=== PATIENT | male | born 2000 | race Caucasian/White ===

== ENCOUNTER → 2023-10-03 10:27 | Outpatient (BNVA) | payer BC, SELFPAY | PROVIDERS: Family Provider Family Medicine; PCP Family Medicine; Visit Provider Registered Nurse Neonatal Intensive Care | DX: J02.9 Acute pharyngitis, unspecified (principal) | CPT/HCPCS: 87880 ==

== ENCOUNTER 2023-10-06 19:42 | Emergency (ER) | payer BC, SELFPAY ==
[2023-10-06 19:43] VITALS: BP 127/88; PULSE 81; RESP 16; TEMP 36.6; O2SAT 98
--- NOTE | 2023-10-06 19:54 | ED_ITS ---
HPI - General Adult General: Stated complaint: throat swelling, body aches Time Seen by Provider: 10/06/23 19:51 Source: patient Mode of arrival: ambulatory Limitations: no limitations History of Present Illness: Patient is a 23-year-old male presents to ED today with complaint of a sore throat and dysphagia. Patient states he has had symptoms for approximately 5 days now. He was seen at urgent care 3 days ago and tested positive for strep. He was placed on amoxicillin. Patient states he has been on this medication for 3 days and does not feel like he is improving as expected. He states he is h aving razor like discomforts when he eats or drinks. Patient is not having any drooling, trouble swallowing or controlling secretions. He does not complain of shortness of breath or difficulty breathing. Onset (ago): day(s) Severity: moderate Pain Consistency: constant Exacerbating factors: other (swallowing) Associated symptoms: Reports no associated symptoms; Deny chest pain, dyspnea, headache(s), malaise or rash Treatments prior to arrival: none Review of Systems Const: Reports: fever(s) and body aches; Denies: fatigue or malaise Eyes: Denies: eye discomfort, eye discharge or eye redness ENMT: Reports: throat pain and odynophagia; Denies: nasal discharge, nasal congestion or sinus pain Card: Denies: chest pain Resp: Denies: dyspnea GI: Denies: abdominal pain Skin/Breast: Denies: rash Neuro: Denies: headache(s) PFS ED PFSH: Social History Smoking and tobacco/nicotine status: never used tobacco/nicotine Physical Exam Const: COMMON NORMALS: no acute distress, average body habitus, patient oriented x3, no limitations, alert and well nourished HENMT: FACE & SINUS: normal facial exam MOUTH: Normal oral and palatal mucosa present and lip normal THROAT: abnormal tonsil (there is no tonsillar abscess or [employer] CHIEF present) bilateral erythema, exudates and hypertrophy Eye: GENERAL EYE: appearance normal, both eyes and all related structures Neck/C-Spine: COMMON NORMALS: no lymphadenopathy GENERAL: Yes normal visual inspection, No anterior neck swelling and No submandibular swelling Resp: COMMON NORMALS: normal respiratory effort and clear to auscultation bilaterally AUSCULTATION: clear to auscultation bilaterally Cardio: COMMON NORMALS: regular rate and regular rhythm RATE: regular rate RHYTHM: regular rhythm Neuro: COMMON NORMALS: patient oriented x3 SENSORIUM/ORIENTATION: Yes alert Skin: COMMON NORMALS: no rashes or lesions noted GENERAL SKIN EXAM: no rashes or lesions noted Course Vital Signs: Vital signs: Vital Signs Temperature 97.9 F 10/06/23 19:43 Pulse Rate 81 10/06/23 19:43 Respiratory Rate 16 10/06/23 19:43 Blood Pressure 127/88 10/06/23 19:43 Pulse Oximetry 98 10/06/23 19:43 Oxygen Delivery Me thod Room Air 10/06/23 19:43 MDM - General Adult Medical Decision Making Patient was given IM Bicillin as well as 10mg of Decadron. Patient gargled with viscous lidocaine but does not feel like this provided much relief and does not want a prescription for this. Recommend continue OTC analgesics. I would anticipate him improving over the next 24 to 48 hours. Return ED precautions given. Do not have any suspicion for a tonsillar or peritonsillar abscess at this time. Medical Records I reviewed the patient's medical records. Lab Data I reviewed the patient's lab results. No radiology studies performed this visit Discharge Plan Discharge Patient Disposition: Home Clinical Impression: Acute streptococcal tonsillitis Qualifiers: Streptococcal tonsillitis recurrence: non-recurrent Qualified Code(s): J03.00 - Acute streptococcal tonsillitis, unspecified Condition: Stable Prescriptions: No Action amoxicillin 500 mg tablet 500 mg PO BID 10 Days Qty: 20 0RF Discharge Orders: Discharge ED (Routine); Ordered 10/06/23 Ordered By: Mariela Lyn Referrals: Lynn Grullon MD [Physician] - Patient Instructions: Strep Throat (DC), Tonsillitis (ED) Coding Level of Care Code ED Splitting Machine Feeder for Alize [place]
[2023-10-06] MEDS: lidocaine 2% viscous 15 mL UDC MUCOUS MEM (20:10)
[2023-10-06] MEDS: dexamethasone 10 mg/mL INJ IM (20:11)
[2023-10-06] MEDS: penicillin g (L-A) 1,200,000 unit/2 mL Syr 1200000 UNIT IM (20:11)
== END 2023-10-06 20:44 | disposition home or self-care (01) ==
PROVIDERS: Emergency Provider Physician Assistant
DX: J03.00 Acute streptococcal tonsillitis, unspecified (principal)
CPT/HCPCS: 96372; 99284; J0561; J1100